=== PATIENT | male | born 1975 | race Caucasian/White ===

== ENCOUNTER 2020-06-24 04:47 | Emergency (ER) | payer SELFPAY ==
[~2020-06-24] VITALS: Ht 188 cm; Wt 70.8 kg
[2020-06-24] MEDS ORDERED: TETANUS/DIPHTHERIA TOX ADULT 0.5 ML SYR IM STA (05:07)
[2020-06-24] MEDS ORDERED: BACITRACIN ZINC 0.9GM TP ONE ×3 (05:15→05:20)
[2020-06-24 05:36] VITALS: BP 123/77
== END 2020-06-24 05:36 | disposition home or self-care (01) ==
LOC: FSED 05:00
DX: S06.0X0A Concussion without loss of consciousness, initial encounter (principal); S01.112A Laceration without foreign body of left eyelid and periocular area, initial encounter; W01.0XXA Fall on same level from slipping, tripping and stumbling without subsequent striking against object, initial encounter; Y93.01 Activity, walking, marching and hiking; I10 Essential (primary) hypertension; F17.210 Nicotine dependence, cigarettes, uncomplicated
CPT/HCPCS: 70450; 99283